=== PATIENT | male | born 1995 | race Caucasian/White ===

== ENCOUNTER 2019-02-01 11:46 | Emergency (ER) | payer OTHER ==
--- NOTE | 2019-02-01 12:01 | UC ---
Hand/Wrist HPI - HPI Summary HPI Summary: 23 yo male presents with RIGHT middle finger injury. He is right handed. He tells me that he was at work and about 30min [employer] he was moving a heavy pipe with a coworker and the coworker dropped the pipe. Pipe landed on pt's right middle finger. Sustained a small laceration here and had immediate pain. Pain has significantly improved since time of injury. He has not taken anything OTC or iced the area. Has not cleansed the area. Unsure date of last tetanus shot. No numbness or tingling. No change in pain with movement of the digit. - History Of Current Complaint Stated Complaint: WC - RIGHT HAND CRUSHING INJURY Time Seen by Provider: 02/01/19 12:00 Hx Obtained From: Patient Onset/Duration: Sudden Onset Severity Initially: Moderate Severity Currently: Mild Pain Intensity: 2 Pain Scale Used: 0-10 Numeric - Allergies/Home Medications Allergies/Adverse Reactions: Allergies Allergy/AdvReac Type Severity Reaction Status Date / Time cefaclor [From Ceclor] Allergy Anaphylatic Verified 02/01/19 12:21 Shock Home Medications: Home Medications NK [No Home Medications Reported] 02/01/19 [History Confirmed 02/01/19] PMH/Surg Hx/FS Hx/Imm Hx - Additional Past Medical History Additional PMH: None - Surgical History Surgical History: None - Family History Known Family History: Positive: None - Social History Occupation: Employed Full-time Lives: With Family Alcohol Use: Occasionally Substance Use Type: None Smoking Status (MU): Never Smoked Tobacco Review of Systems All Other Systems Reviewed And Are Negative: Yes Constitutional: Positive: Negative Skin: Positive: Other - Right middle finger laceration Respiratory: Positive: Negative Cardiovascular: Positive: Negative Neurovascular: Positive: Negative Musculoskeletal: Positive: Other: - Right middle finger pain Neurological: Positive: Negative Psychological: Positive: Negative Physical Exam - Summary Physical Exam Summary: GENERAL: NAD. WDWN. No pain distress. SKIN: RIGHT MIDDLE FINGER: volar aspect overlying intermed phalanx with superficial abrasion. Superficial laceration extending from dorsal intermed phalanx to volar aspect. No active bleeding or gaping/widening during movement. Well approximated at rest. Wound is dirty as pt was working outdoors. CHEST: No accessory muscle use. Breathing comfortably and in no distress. CV: Pulses intact radial and ulnar. Cap refill <2seconds MSK: RIGHT middle finger: FROM without pain. Mild TTP overlying area of crush injury at intermed phalanx. Strength 5/5 including photo mask pattern generator strength. NEURO: Alert. Sensations intact hand and all fingers. PSYCH: Age appropriate behavior. Triage Information Reviewed: Yes Vital Signs: Vital Signs: Temp Pulse Resp BP Pulse Ox 98.1 F 76 16 128/79 98 02/01/19 12:13 02/01/19 12:13 02/01/19 12:13 02/01/19 12:13 02/01/19 12:13 Vital Signs Reviewed: Yes Hand/Wrist Course/Dx - Course Course Of Treatment: XR: IMPRESSION: SOFT TISSUE SWELLING, NO FRACTURE IS SEEN. The wound was irrigated with NS. tdap updated today. Wound is well approximated at rest. Dermabond and band-aid applied. Advised to rest and apply ice to the area. Take ibuprofen for discomfort. Apply a band-aid until well healed. - Differential Dx/Diagnosis Provider Diagnosis: Crushing injury of right middle finger, Laceration of right middle finger Discharge - Sign-Out/Discharge Documenting (check all that apply): Patient Departure All imaging exams completed and their final reports reviewed: Yes - Discharge Plan Condition: Stable Disposition: HOME Patient Education Materials: Crush Injury (ED) Referrals: No Primary Care Phys,NOPCP [Primary Care Provider] - Additional Instructions: If you develop a fever, shortness of breath, chest pain, new or worsening symptoms - please call your PCP or go to the ED. Please rest and apply ice to your finger to reduce pain and swelling. Apply a band-aid until well healed - Billing Disposition and Condition Condition: STABLE Disposition: Home - Attestation Statements Provider Attestation: Per institutional requirements, I have reviewed the chart, however, I was not consulted specifically or made aware of this patient by the midlevel provider. I did not personally evaluate, interact with , or disposition this patient. Laceration Repair - Laceration Repair 1 Description: Linear Laceration Size After Repair: Length (cm) - 1.0 Modified For Repair: No Irrigation With Pressure Irrigation Device: Yes Closure Material: Skin Adhesive
[2019-02-01 12:20] VITALS: BP 128/79
[2019-02-01] MEDS ORDERED: Tetan/Diph/Pertus SYR(Tdap)* 0.5 ML SYR(BOOSTRIX) use SYR IM ONE (12:31)
== END 2019-02-01 13:13 | disposition home or self-care (01) ==
LOC: EDSEX → UCCORT 11:46
DX: S67.192A Crushing injury of right middle finger, initial encounter (principal); S61.212A Laceration without foreign body of right middle finger without damage to nail, initial encounter; X50.0XXA Overexertion from strenuous movement or load, initial encounter; Y92.69 Other specified industrial and construction area as the place of occurrence of the external cause; Z88.8 Allergy status to other drugs, medicaments and biological substances
CPT/HCPCS: 26720; 73140; 90471; 90715; 99202; G0463